=== PATIENT | female | born 1970 | race Caucasian/White ===

== ENCOUNTER 2021-10-07 09:43 | Emergency (ER) | payer BC ==
[2021-10-07] MEDS ORDERED: Sodium Chloride 0.9% 10 ML Syringe FLUSH PRN (09:49)
[2021-10-07] MEDS ORDERED: Sodium Chloride 0.9% 2.5 ML Syringe FLUSH PRN (09:49)
[2021-10-07] MEDS ORDERED: Piperacillin/Tazobactam 4.5 GM in Sodium Chloride 0.9% 100 ML IV ONE (10:17)
[2021-10-07] MEDS ORDERED: Ondansetron 4 MG/2 ML SDV IVPUSH ONE (10:20)
[2021-10-07] MEDS ORDERED: fentaNYL 50 MCG/ML SDV IVPUSH ONE ×2 (10:20→12:28)
[2021-10-07] MEDS ORDERED: Ketorolac 30 MG/ML SDV IVPUSH ONE (10:21)
[2021-10-07] MEDS ORDERED: Sodium Chloride 0.9% 1,000 ML IV ONE ×2 (10:21→11:58)
[2021-10-07 10:29] LABS: BLOOD UREA NITROGEN,BUN 9 mg/dL (7.0-18.0); CARBON DIOXIDE,CO2 27.9 mmol/L (21.0-32.0); CHLORIDE,CL 96 mmol/L (98-107); GLUCOSE RANDOM 428 mg/dL (74-106); POTASSIUM,K 5.1 mmol/L (3.5-5.1); SODIUM,NA 132 mmol/L (136-145)
[2021-10-07] MEDS: fentaNYL 50 MCG/ML SDV IVPUSH ONE ×2 (12:31→13:15)
[2021-10-07] MEDS ORDERED: Iopamidol 755 MG/ML 500 ML Multipack Bottle IVPUSH ONE (15:39)
[2021-10-07 15:44] VITALS: BP 100/74; PULSE 115
== END 2021-10-07 15:05 ==
LOC: MW.ED 09:43
DX: K61.1 Rectal abscess (principal); E78.00 Pure hypercholesterolemia, unspecified; I10 Essential (primary) hypertension; K21.9 Gastro-esophageal reflux disease without esophagitis; E11.9 Type 2 diabetes mellitus without complications; Z88.2 Allergy status to sulfonamides; Z79.899 Other long term (current) drug therapy; Z79.84 Long term (current) use of oral hypoglycemic drugs; Z20.822 Contact with and (suspected) exposure to COVID-19
CPT/HCPCS: 36415; 74177; 80053; 81001; 83605; 85025; 87040; 87635; 96365; 96366; 96367; 96375; 96376; 99284; J1885; J2405; J2543; J3010; J3370; J3490; J7030; J7050; Q9967; U0002

== ENCOUNTER 2022-06-23 09:18 | Emergency (ER) | payer BC ==
[2022-06-23] MEDS ORDERED: Sodium Chloride 0.9% 1,000 ML IV STA (10:42)
[2022-06-23] MEDS ORDERED: Iopamidol 755 MG/ML 500 ML Multipack Bottle IVPUSH ONE (11:20)
[2022-06-23 14:54] VITALS: BP 132/68; PULSE 86
== END 2022-06-23 14:52 | disposition home or self-care (01) ==
LOC: MW.ED 09:18
DX: K61.1 Rectal abscess (principal); K57.30 Diverticulosis of large intestine without perforation or abscess without bleeding; R91.1 Solitary pulmonary nodule; R81 Glycosuria; E78.00 Pure hypercholesterolemia, unspecified; I10 Essential (primary) hypertension; E11.9 Type 2 diabetes mellitus without complications; Z88.6 Allergy status to analgesic agent; Z88.2 Allergy status to sulfonamides; Z79.899 Other long term (current) drug therapy; Z79.84 Long term (current) use of oral hypoglycemic drugs; Z72.0 Tobacco use
CPT/HCPCS: 36415; 74177; 81003; 83605; 83735; 96360; 99284; J7030; Q9967; 80053; 85025; 85652

== ENCOUNTER 2023-01-09 07:11 | Day surgery (SDC) | payer BC ==
[~2023-01-09 07:11] MED LIST: Lactated Ringers 1,000 ML IV SCH; Sodium Chloride 0.9% 10 ML Syringe FLUSH PRN; Sodium Chloride 0.9% 2.5 ML Syringe FLUSH PRN; Sodium Chloride 0.9% 20 ML SDV IV PRN
[2023-01-09] MEDS ORDERED: droPERidol 5 MG/2 ML SDV IVPUSH PRN (07:30)
[2023-01-09] MEDS ORDERED: Albuterol 0.083% 2.5 MG/3 ML Neb Soln NEB PRN (07:30)
[2023-01-09] MEDS ORDERED: Morphine 2 MG/ML SYRINGE IVPUSH PRN (07:30)
[2023-01-09] MEDS ORDERED: HYDROmorphone 1 MG/ML Syringe IVPUSH PRN (07:30)
[2023-01-09] MEDS ORDERED: Metoclopramide 10 MG/2 ML SDV IVPUSH PRN (07:30)
[2023-01-09] MEDS ORDERED: Ondansetron 4 MG/2 ML SDV IVPUSH PRN (07:30)
[2023-01-09] MEDS ORDERED: Naloxone 0.4 MG/ML SDV IVPUSH PRN (07:30)
[2023-01-09] MEDS ORDERED: Ropivacaine 0.5% 5 MG/ML 30 ML SDV ONE (07:46)
[2023-01-09] MEDS ORDERED: propofoL 50 ML ONE ×2 (07:47→09:30)
[2023-01-09] MEDS ORDERED: Propofol 200 MG/20 ML SDV ONE (07:47)
[2023-01-09] MEDS ORDERED: fentaNYL 250 MCG/5 ML SDV ONE (07:48)
[2023-01-09] MEDS ORDERED: Morphine 10 MG/ML SDV ONE (07:48)
[2023-01-09] MEDS ORDERED: Magnesium Sulfate (4.06 MEQ/ML) 5 GM/10 ML SDV ONE (08:43)
[2023-01-09] MEDS ORDERED: ceFAZolin 1 GM Vial ONE ×2 (08:48)
[2023-01-09] MEDS ORDERED: Phenylephrine HCl 0.5 MG/5 ML AMP ONE (08:56)
[2023-01-09] MEDS ORDERED: Phenylephrine 1% 10 MG/ML SDV ONE (08:56)
[2023-01-09] MEDS ORDERED: Lidocaine 2% 11 ML Jelly Filled Syringe ONE (08:57)
[2023-01-09] MEDS ORDERED: Calcium Chloride 10% 1 GM/10 ML Syringe ONE (08:58)
[2023-01-09] MEDS ORDERED: Ketorolac 30 MG/ML SDV ONE (09:35)
[2023-01-09] MEDS ORDERED: Ondansetron 4 MG/2 ML SDV ONE (09:35)
[2023-01-09] MEDS ORDERED: Dexamethasone 4 MG/ML 5 ML MDV ONE (09:35)
[2023-01-09] MEDS ORDERED: Rocuronium Bromide 50 MG/5 ML Syringe ONE (09:35)
[2023-01-09] MEDS ORDERED: Sugammadex Sodium 200 MG/2 ML VIAL ONE (09:35)
[2023-01-09 12:09] VITALS: BP 108/74; PULSE 64
[2023-01-09] MEDS ORDERED: ceFAZolin 2 GM in Sodium Chloride 0.9% 50 ML IV ONE (15:50)
== END 2023-01-09 12:15 | disposition home or self-care (01) ==
LOC: MW.SDS 07:11
PROVIDERS: ATTEND Surgery
DX: K80.10 Calculus of gallbladder with chronic cholecystitis without obstruction (principal); D13.5 Benign neoplasm of extrahepatic bile ducts; K82.8 Other specified diseases of gallbladder; F41.9 Anxiety disorder, unspecified; F32.A Depression, unspecified; J45.909 Unspecified asthma, uncomplicated; E11.40 Type 2 diabetes mellitus with diabetic neuropathy, unspecified; K21.9 Gastro-esophageal reflux disease without esophagitis; E78.5 Hyperlipidemia, unspecified; E05.90 Thyrotoxicosis, unspecified without thyrotoxic crisis or storm; G47.33 Obstructive sleep apnea (adult) (pediatric); E66.9 Obesity, unspecified; F17.210 Nicotine dependence, cigarettes, uncomplicated; Z68.33 Body mass index [BMI] 33.0-33.9, adult; Z88.2 Allergy status to sulfonamides; Z79.84 Long term (current) use of oral hypoglycemic drugs; Z79.85 Long-term (current) use of injectable non-insulin antidiabetic drugs; Z79.890 Hormone replacement therapy; Z79.899 Other long term (current) drug therapy; Z68.28 Body mass index [BMI] 28.0-28.9, adult; Z88.5 Allergy status to narcotic agent
CPT/HCPCS: 47562; 64488; 82947; A9270; J0690; J1100; J1885; J2270; J2370; J2405; J2704; J2795; J3010; J3475; J3490; J7030; J7120; 00790

== ENCOUNTER 2023-02-27 07:28 | Day surgery (SDC) | payer BC ==
[2023-02-27] MEDS ORDERED: Propofol 200 MG/20 ML SDV ONE (08:26)
[2023-02-27] MEDS ORDERED: Midazolam 1 MG/ML 2 ML SDV ONE (08:26)
[2023-02-27] MEDS ORDERED: Lidocaine 2% 5 ML SDV ONE (08:26)
[2023-02-27 10:13] VITALS: BP 108/71; PULSE 80
== END 2023-02-27 10:30 | disposition home or self-care (01) ==
LOC: MW.SDS 07:28
PROVIDERS: ATTEND Surgery
DX: K21.00 Gastro-esophageal reflux disease with esophagitis, without bleeding (principal); K59.09 Other constipation; K22.89 Other specified disease of esophagus; K62.1 Rectal polyp; D12.3 Benign neoplasm of transverse colon; D12.5 Benign neoplasm of sigmoid colon; F41.9 Anxiety disorder, unspecified; F32.A Depression, unspecified; E11.40 Type 2 diabetes mellitus with diabetic neuropathy, unspecified; E03.9 Hypothyroidism, unspecified; E78.00 Pure hypercholesterolemia, unspecified; G47.33 Obstructive sleep apnea (adult) (pediatric); F17.210 Nicotine dependence, cigarettes, uncomplicated; Z88.2 Allergy status to sulfonamides; Z79.890 Hormone replacement therapy; Z79.84 Long term (current) use of oral hypoglycemic drugs; Z79.899 Other long term (current) drug therapy; Z90.49 Acquired absence of other specified parts of digestive tract; Z88.5 Allergy status to narcotic agent
CPT/HCPCS: 43239; 45380; 45385; 82947; J2250; J2704; J7120; 00813; J3490

== ENCOUNTER 2023-07-07 10:02 | Emergency (ER) | payer BC ==
[2023-07-07] MEDS: Sodium Chloride 0.9% 10 ML Syringe FLUSH PRN (10:34)
[2023-07-07] MEDS: Sodium Chloride 0.9% 2.5 ML Syringe FLUSH PRN (10:34)
[2023-07-07 10:38] LABS: BASOPHILS ABSOLUTE AUTO 0.11 K/uL (0.00-0.20); BASOPHILS PERCENT AUTO 0.6 % (0.0-1.0); EOSINOPHILS ABSOLUTE AUTO 0.13 K/uL (0.00-0.45); EOSINOPHILS PERCENT AUTO 0.7 % (0.0-6.0); HEMATOCRIT 55.4 % (37.0-47.0); HEMOGLOBIN 18.2 g/dL (12.0-16.0); IMMATURE GRAN ABSOLUTE AUTO 0.07 K/uL (0.00-0.05); IMMATURE GRAN PERCENT AUTO 0.4 % (0.0-0.4); LYMPHOCYTES ABSOLUTE AUTO 3.05 K/uL (1.00-4.80); LYMPHOCYTES PERCENT AUTO 15.5 % (24.0-44.0); MEAN CORPUSCULAR HEMOGLOBIN 30.4 pg (28.0-32.0); MEAN CORPUSCULAR HGB CONC 32.9 g/dL (32.0-36.0); MEAN CORPUSCULAR VOLUME 92.5 fL (83.0-99.0); MEAN PLATELET VOLUME 9.2 fL (9.4-12.3); MONOCYTES ABSOLUTE AUTO 1.27 K/uL (0.00-0.80); MONOCYTES PERCENT AUTO 6.4 % (0.0-8.0); NEUTROPHILS ABSOLUTE AUTO 15.06 K/uL (1.80-7.70); NEUTROPHILS PERCENT AUTO 76.4 % (41.0-71.0); PLATELET COUNT,PLT 353 K/uL (150-400); RED BLOOD CELL COUNT 5.99 M/uL (4.10-5.30); WHITE BLOOD CELL COUNT,WBC 19.69 K/uL (3.9-11.3)
[2023-07-07] MEDS: Sodium Chloride 0.9% 1,000 ML IV ONE (10:53)
[2023-07-07] MEDS: Morphine 2 MG/ML SYRINGE IVPUSH ONE (10:53)
[2023-07-07] MEDS: Ondansetron 4 MG/2 ML SDV IVPUSH ONE (10:53)
[2023-07-07 11:19] LABS: BILIRUBIN TOTAL 0.8 mg/dL (0.2-1.0); CALCIUM 9.4 mg/dL (8.5-10.1); CARBON DIOXIDE,CO2 21.9 mmol/L (21.0-32.0); CREATININE 1.3 mg/dL (0.6-1.0); EST CRCL DRUG DOSING (CG) 46.07 mL/min; POTASSIUM,K 4.8 mmol/L (3.5-5.1); PROTEIN TOTAL,TP 8.2 g/dL (6.4-8.2)
[2023-07-07 11:36] LABS: COLOR,URINE YELLOW; GLUCOSE,URINE >=1000 mg/dL (NEGATIVE); KETONES,URINE 15 mg/dL (NEGATIVE); LEUKOCYTE ESTERASE,URINE NEGATIVE (NEGATIVE); NITRITE,URINE POSITIVE (NEGATIVE); OCCULT BLOOD,URINE NEGATIVE (NEGATIVE); PROTEIN,URINE TRACE mg/dL (NEGATIVE); UROBILINOGEN,URINE 0.2 EU/dL (<2.0)
[2023-07-07 11:38] LABS: APPEARANCE,URINE HAZY; BILIRUBIN,URINE SMALL (NEGATIVE)
[2023-07-07 11:46] LABS: BACTERIA,URINE FEW (NEGATIVE); EPITHELIAL CELLS,URINE RARE (NONE-FEW); RBC,URINE 0-2 (0-2/HPF); WBC,URINE 0-3 (0-5/HPF)
[2023-07-07 11:47] LABS: HYALINE CASTS,URINE 0-1 (0-2/LPF)
[2023-07-07] MEDS: Iopamidol 755 MG/ML 500 ML Multipack Bottle IVPUSH ONE (12:13)
[2023-07-07] MEDS: cefTRIAXone 1 GM in Sodium Chloride 0.9% 50 ML IV ONE (12:51)
[2023-07-07] MEDS: Alum Hydro/Mag Hydro/Simeth XS 15 ML, Metoclopramide 5 MG, Lidocaine 2% 5 ML PO ONE (12:51)
[2023-07-07] MEDS: Ketorolac 30 MG/ML SDV IVPUSH ONE (12:51)
[2023-07-07 13:39] VITALS: BP 99/63; PULSE 103
== END 2023-07-07 13:39 | disposition home or self-care (01) ==
LOC: MW.ED 10:02
DX: K52.9 Noninfective gastroenteritis and colitis, unspecified (principal); N39.0 Urinary tract infection, site not specified; I10 Essential (primary) hypertension; K21.9 Gastro-esophageal reflux disease without esophagitis; E78.00 Pure hypercholesterolemia, unspecified; E11.9 Type 2 diabetes mellitus without complications; E03.9 Hypothyroidism, unspecified; Z88.2 Allergy status to sulfonamides; Z88.8 Allergy status to other drugs, medicaments and biological substances; Z79.84 Long term (current) use of oral hypoglycemic drugs; Z79.899 Other long term (current) drug therapy
CPT/HCPCS: 36415; 71045; 74177; 80053; 81001; 83690; 84484; 85025; 87086; 93005; 96361; 96365; 96375; 99284; A9270; J0696; J1885; J2270; J2405; J3490; J7030; Q9967; 93010

== ENCOUNTER 2024-06-18 15:35 | Emergency (ER) | payer BC ==
[2024-06-18] MEDS: Amoxicillin/Clavulanate K 875-125 MG Tab PO ONE (21:32)
[2024-06-18] MEDS: Acetaminophen/HYDROcodone 325-5 MG Tab PO ONE (21:33)
[2024-06-18] MEDS: Ibuprofen 600 MG Tab PO ONE (21:33)
[2024-06-18] MEDS: Lidocaine 1% 10 ML MDV INJECT ONE (21:34)
[2024-06-18 23:15] VITALS: BP 140/70; PULSE 82
== END 2024-06-18 23:14 | disposition home or self-care (01) ==
LOC: MW.ED 15:35
DX: K61.0 Anal abscess (principal); I10 Essential (primary) hypertension; E78.00 Pure hypercholesterolemia, unspecified; J45.909 Unspecified asthma, uncomplicated; K21.9 Gastro-esophageal reflux disease without esophagitis; E11.9 Type 2 diabetes mellitus without complications; Z90.49 Acquired absence of other specified parts of digestive tract; Z90.710 Acquired absence of both cervix and uterus; Z88.5 Allergy status to narcotic agent; Z88.2 Allergy status to sulfonamides; Z79.84 Long term (current) use of oral hypoglycemic drugs; Z79.51 Long term (current) use of inhaled steroids; Z79.890 Hormone replacement therapy; Z79.899 Other long term (current) drug therapy; Z75.8 Other problems related to medical facilities and other health care; R53.81 Other malaise; R53.83 Other fatigue; R93.3 Abnormal findings on diagnostic imaging of other parts of digestive tract
CPT/HCPCS: 36415; 74177; 80053; 80061; 83036; 84443; 85025; 85652; 99283; A9270; Q9967; 46050; J3490